=== PATIENT | female | born 1970 | race Caucasian/White ===

== ENCOUNTER 2019-12-28 09:20 | Outpatient (CLI) | payer BC, SELFPAY ==
--- NOTE | ~2019-12-28 | US_ITS ---
EXAMINATION: US venous doppler UE LT DATE: 12/28/2019 10:26 INDICATION: Left forearm swelling. TECHNIQUE: Grayscale ultrasound images without and with compression and Doppler ultrasound images of the left upper extremity veins were obtained. COMPARISON: None. FINDINGS: The visualized portions of the left internal jugular vein, subclavian vein, axillary vein, brachial v eins, basilic vein, radial vein, and ulnar vein are patent. There is thrombus in left cephalic vein. IMPRESSION: 1. Thrombus in left cephalic vein, which is a superficial vein. Reviewed, dictated and finalized at location A. [employer]
== END 2019-12-28 09:21 | disposition home or self-care (01) ==
PROVIDERS: PCP Family Medicine; Visit Provider Family Medicine
DX: I80.9 Phlebitis and thrombophlebitis of unspecified site (principal); I82.612 Acute embolism and thrombosis of superficial veins of left upper extremity
CPT/HCPCS: 93971